=== PATIENT | female | born 1965 | race Caucasian/White ===

== ENCOUNTER 2019-11-11 18:18 | Inpatient (IN) | payer MEDICAID ==
[~2019-11-11] VITALS: Ht 172.7 cm; Wt 62.0 kg
[2019-11-11] MEDS ORDERED: TRAZ150T62 PO (18:42)
[2019-11-11] MEDS ORDERED: AMLO-150 PO (18:42)
[2019-11-11] MEDS ORDERED: PREG300C PO (18:42)
[2019-11-11] MEDS ORDERED: OXYC10TA6 PO (18:42)
[2019-11-11] MEDS ORDERED: PANT40TA3 PO (18:42)
[2019-11-11] MEDS ORDERED: DIPHENHYDRAMINE 50 MG/ML, 1ML ONE (18:49)
[2019-11-11] MEDS ORDERED: METOCLOPRAMIDE 5 MG/ML, 2ML ONE (18:50)
[2019-11-11] MEDS ORDERED: METOCLOPRAMIDE 5 MG/ML, 2ML IVPush ONE (19:00)
[2019-11-11] MEDS ORDERED: DIPHENHYDRAMINE 50 MG/ML, 1ML IVPush ONE (19:00)
[2019-11-11] MEDS ORDERED: PREGABALIN 150 MG CAPSULE PO ONE (19:00)
[2019-11-11 19:09] LABS: D-DIMER 0.78 ug/mlFEU (0.00-0.52); INTERNATIONAL NORMALIZED RATIO 1.1 (0.93-1.1); PROTHROMBIN TIME 11.3 Seconds (9.6-11.5)
[2019-11-11 19:11] LABS: TROPONIN I < 0.015 ng/mL (0.000-0.045)
--- NOTE | 2019-11-11 19:36 | NUR ---
PATIENT HAS IMPROVED WITH MEDICATIONS, TOLERATING INTERVENTIONS WELL. NO NOTED NEEDS AT THIS TIME. WILL CONTINUE TO MONITOR. PATIENT'S VITAL SIGNS ARE WITHIN PATIENT'S NORMAL RANGE.
--- NOTE | 2019-11-11 19:57 | NUR ---
PATIENT VERBALIZED APPROVAL TO SHARE MEDICAL RELATED INFORMATION WITH JANEY MOCK.
[2019-11-11] MEDS ORDERED: ENALAPRILAT 1.25 MG/ML, 2ML IV ONE (21:00)
[2019-11-11] MEDS ORDERED: ENALAPRILAT 1.25 MG/ML, 1ML ONE (21:12)
[2019-11-11] MEDS ORDERED: ENALAPRILAT 1.25 MG/ML, 1ML IV ONE (21:30)
[2019-11-11] MEDS ORDERED: ACETAMINOPHEN 325 MG TABLET PO PRN (22:00)
[2019-11-11] MEDS ORDERED: NITROGLYCERIN 0.4 MG BOTTLE (25 TABS) SL PRN (22:00)
[2019-11-11] MEDS ORDERED: BISACODYL 10 MG SUPP PR PRN (22:00)
[2019-11-11] MEDS ORDERED: hydrALAzine 20 MG/ML, 1ML IVPush PRN (22:00)
[2019-11-11] MEDS ORDERED: HEPARIN 5,000 UNITS/ML, 1ML SQ SCH (22:00)
[2019-11-11 22:11] LABS: ALBUMIN 4.2 g/dL (3.4-5.0); ANION GAP 6 mmol/L (5-15); CALCIUM 10.6 mg/dL (8.5-10.1); CHLORIDE 103 mmol/L (98-107)
[2019-11-11 22:16] LABS: ALANINE AMINOTRANSFERASE 59 U/L (12-78); ALKALINE PHOSPHATASE 155 U/L (45-117); BILIRUBIN,TOTAL 0.7 mg/dL (0.2-1.0); CREATININE 1.16 mg/dL (0.55-1.02); TOTAL PROTEIN 8.1 g/dL (6.4-8.2)
[2019-11-11] MEDS ORDERED: ENALAPRILAT 1.25 MG/ML, 2ML IV PRN (22:30)
[2019-11-11] MEDS ORDERED: INSTRUCTION SEE COMMENTS XX PRN (22:30)
--- NOTE | 2019-11-11 22:44 | NUR ---
PATIENT NEEDED TO USE THE RESTROOM, VOMITTED ON ONE OCCASION TWICE. PATIENT HAS DARK EMESIS WITH SOME RED COLOR. PATIENT STATED THAT SHE USE TO HAVE A PEPTIC ULCER, RESULTED IN GI CONSULT AND EGD. MADE RAFA SYKES AWARE OF PATIENT'S CHANGE IN STATUS. ADMITTING RN FRANCO, SHARLENE PLUMMER. PATIENT UPDATED ON PLAN OF CARE. RAFA SYKES VERBALIZED UNDERSTANDING, WILL ORDER PROTONIX IVP.
--- NOTE | 2019-11-11 22:46 | NUR ---
SUBQ HEPARIN WILL BE DISCONTINUED PER RAFA SYKES.
[2019-11-11 22:59] VITALS: BP 132/88
[2019-11-11 23:08] LABS: BASOPHILS # (AUTO) 0.01 x10^3/uL (0-0.1); BASOPHILS % (AUTO) 0 % (0-1); EOSINOPHILS % (AUTO) 0 % (1-7); LYMPHOCYTES # (AUTO) 3.14 x10^3/uL (1-3.4); LYMPHOCYTES % (AUTO) 22 % (22-44); MD SCAN; MEAN CORPUSCULAR HEMOGLOBIN 23.3 pg (27.0-34.8); MEAN CORPUSCULAR HGB CONC 31.5 g/dL (32.4-35.8); MEAN PLATELET VOLUME 13.7 fL (7.4-10.4); MONOCYTES # (AUTO) 1.07 x10^3/uL (0.2-0.8); MONOCYTES % (AUTO) 7 % (2-9); NEUTROPHILS # (AUTO) 10.21 x10^3/uL (1.8-6.8); NEUTROPHILS % (AUTO) 71 % (42-75); PLATELET COUNT 207 x10^3/uL (130-400); RED CELL DISTRIBUTION WIDTH 20.9 % (9.6-15.2)
[2019-11-11] MEDS ORDERED: OMNIPAQUE 350 MG/ML, 100ML BOTTLE ONE (23:38)
[2019-11-11] MEDS: morphine SULFATE 10 MG/ML, 1ML IVPush PRN (23:48)
[2019-11-11] MEDS: PANTOPRAZOLE 40 MG IV IVPush SCH (23:49)
[2019-11-11] MEDS: SODIUM CHLORIDE FLUSH 10ML SYR IVF SCH (23:49)
[2019-11-12 00:56] LABS: TROPONIN I < 0.015 ng/mL (0.000-0.045)
[2019-11-12 02:39] VITALS: BP 122/84
[2019-11-12] MEDS ORDERED: ENALAPRILAT 1.25 MG/ML, 2ML IV PRN (04:30)
[2019-11-12] MEDS: morphine SULFATE 10 MG/ML, 1ML IVPush PRN ×2 (04:34→21:15)
[2019-11-12 04:41] LABS: MEAN CORPUSCULAR HEMOGLOBIN 23.2 pg (27.0-34.8); MEAN CORPUSCULAR HGB CONC 31.4 g/dL (32.4-35.8); MEAN PLATELET VOLUME 14.4 fL (7.4-10.4); PLATELET COUNT 160 x10^3/uL (130-400); RED BLOOD COUNT 5.83 x10^6/uL (3.82-5.3); RED CELL DISTRIBUTION WIDTH 20.8 % (9.6-15.2)
[2019-11-12 05:59] LABS: BASOPHILS # (AUTO) 0.04 x10^3/uL (0-0.1); BASOPHILS % (AUTO) 0 % (0-1); EOSINOPHILS # (AUTO) 0.04 x10^3/uL (0-0.4); EOSINOPHILS % (AUTO) 0 % (1-7); LYMPHOCYTES # (AUTO) 2.26 x10^3/uL (1-3.4); LYMPHOCYTES % (AUTO) 17 % (22-44); MD SCAN; MONOCYTES # (AUTO) 1.02 x10^3/uL (0.2-0.8); MONOCYTES % (AUTO) 8 % (2-9); NEUTROPHILS # (AUTO) 10.34 x10^3/uL (1.8-6.8); NEUTROPHILS % (AUTO) 76 % (42-75)
[2019-11-12] MEDS ORDERED: ASPIRIN 81 MG TABLET EC PO SCH (06:00)
[2019-11-12 06:45] LABS: ANION GAP 6 mmol/L (5-15); CALCIUM 9.3 mg/dL (8.5-10.1); CHLORIDE 103 mmol/L (98-107); CHOLESTEROL, TOTAL 147 mg/dL (140-239); CREATININE 1.18 mg/dL (0.55-1.02); TRIGLYCERIDES 143 mg/dL (50-200); VLDL CHOLESTEROL 29 mg/dL (0-25)
[2019-11-12 06:48] LABS: CHOL/HDL RATIO 4.1; HDL CHOL % 24 % (28-40); HDL CHOLESTEROL (DIRECT) 36 mg/dL (40-60); LDL CHOLESTEROL,CALCULATED 82 mg/dL (54-169); LDL/HDL RATIO 2.3 (0.5-3.0); TROPONIN I < 0.015 ng/mL (0.000-0.045)
[2019-11-12 07:00] VITALS: BP 122/84
[2019-11-12] MEDS: PANTOPRAZOLE 40MG TABLET PO SCH (07:30)
[2019-11-12] MEDS ORDERED: LORazepam 2 MG/ML, 1ML ONE (08:15)
[2019-11-12] MEDS ORDERED: LORazepam 2 MG/ML, 1ML IVPush ONE (08:30)
[2019-11-12] MEDS: SENNA/DOCUSATE TABLET PO SCH (09:00)
[2019-11-12] MEDS: SODIUM CHLORIDE FLUSH 10ML SYR IVF SCH ×2 (09:00→20:42)
[2019-11-12] MEDS ORDERED: REGADENOSON 0.4 MG/5 ML SYRINGE ONE (09:19)
[2019-11-12] MEDS: TRAZODONE 100MG TABLET PO SCH (11:10)
[2019-11-12] MEDS: ONDANSETRON ODT 4 MG PO PRN (11:11)
[2019-11-12] MEDS: PREGABALIN 150 MG CAPSULE PO SCH ×2 (11:11→20:41)
[2019-11-12] MEDS: AMLODIPINE 10 MG TAB PO SCH (11:11)
[2019-11-12] MEDS: PANTOPRAZOLE 40 MG IV IVPush SCH ×2 (11:12→23:45)
[2019-11-12] MEDS: METOCLOPRAMIDE 5 MG/ML, 2ML IVPush SCH ×2 (13:23→20:41)
[2019-11-12 14:02] LABS: HCT (SEDRATE) 40.7 % (34.6-47.8)
[2019-11-12] MEDS: D5 IV SCH ×2 (14:04→23:45)
[2019-11-12] MEDS: POTASSIUM CHLORIDE IV SCH ×2 (14:04→23:45)
[2019-11-12] MEDS: NACL IV SCH ×2 (14:04→23:45)
[2019-11-12 14:09] LABS: C-REACTIVE PROTEIN, QUANT 0.23 mg/dL (0.02-0.49)
[2019-11-12 14:30] VITALS: BP 135/76
[2019-11-12 19:11] VITALS: BP 139/87
[2019-11-13] VITALS (13 sets, daily range): BP systolic 120–164; BP diastolic 62–95
[2019-11-13] MEDS: METOCLOPRAMIDE 5 MG/ML, 2ML IVPush SCH ×4 (01:27→21:01)
[2019-11-13] MEDS: morphine SULFATE 10 MG/ML, 1ML IVPush PRN ×2 (01:55→09:11)
[2019-11-13] MEDS ORDERED: LORazepam 1MG TABLET PO ONE (04:30)
[2019-11-13] MEDS: SENNA/DOCUSATE TABLET PO SCH (08:54)
[2019-11-13] MEDS: TRAZODONE 100MG TABLET PO SCH (08:54)
[2019-11-13] MEDS: AMLODIPINE 10 MG TAB PO SCH (08:54)
[2019-11-13] MEDS: PREGABALIN 150 MG CAPSULE PO SCH ×2 (08:55→21:00)
[2019-11-13] MEDS: SODIUM CHLORIDE FLUSH 10ML SYR IVF SCH ×2 (08:55→21:00)
[2019-11-13] MEDS: PANTOPRAZOLE 40MG TABLET PO SCH (09:01)
[2019-11-13] MEDS: POTASSIUM CHLORIDE IV SCH (10:09)
[2019-11-13] MEDS: NACL IV SCH (10:09)
[2019-11-13] MEDS: D5 IV SCH (10:09)
[2019-11-13 11:39] LABS: BASOPHILS # (AUTO) 0.02 x10^3/uL (0-0.1); BASOPHILS % (AUTO) 0 % (0-1); EOSINOPHILS # (AUTO) 0.06 x10^3/uL (0-0.4); EOSINOPHILS % (AUTO) 1 % (1-7); LYMPHOCYTES # (AUTO) 1.11 x10^3/uL (1-3.4); LYMPHOCYTES % (AUTO) 21 % (22-44); MD SCAN; MEAN CORPUSCULAR HEMOGLOBIN 23.4 pg (27.0-34.8); MEAN CORPUSCULAR HGB CONC 31.1 g/dL (32.4-35.8); MEAN PLATELET VOLUME 13.3 fL (7.4-10.4); MONOCYTES # (AUTO) 0.33 x10^3/uL (0.2-0.8); MONOCYTES % (AUTO) 6 % (2-9); NEUTROPHILS # (AUTO) 3.91 x10^3/uL (1.8-6.8); NEUTROPHILS % (AUTO) 72 % (42-75); PLATELET COUNT 104 x10^3/uL (130-400); RED BLOOD COUNT 4.91 x10^6/uL (3.82-5.3); RED CELL DISTRIBUTION WIDTH 20.9 % (9.6-15.2)
[2019-11-13] MEDS: SODIUM CHLORIDE 0.9% 1,000 ML IV SCH (11:42)
[2019-11-13] MEDS ORDERED: OXYcodone IR 5MG TABLET PO PRN (12:30)
[2019-11-13] MEDS: ONDANSETRON ODT 4 MG PO PRN (14:33)
--- NOTE | 2019-11-13 14:42 | NUR ---
ERICK DECKER - Fall Risk Medications present (AMLODIPINE, CLONAZEPAM, ENALAPRILAT, TRAZODONE) and NOT receiving anticoagulants. Signed: 11/13/19 at 1443 by Ashly MONACO
[2019-11-13] MEDS: LACTOBACILLUS CHEW TABLET PO SCH ×4 (16:06→21:00)
[2019-11-13] MEDS: PROCHLORPERAZINE 5 MG/ML, 2ML IVPush PRN (17:27)
[2019-11-13] MEDS: SUCRALFATE 1 GM/10 ML UDC PO SCH (21:00)
[2019-11-14] VITALS: BP 151/85
[2019-11-14] MEDS: OXYcodone IR 5MG TABLET PO PRN ×3 (00:13→18:02)
[2019-11-14] MEDS: ACETAMINOPHEN 325 MG TABLET PO PRN ×2 (02:01→07:44)
[2019-11-14] MEDS: METOCLOPRAMIDE 5 MG/ML, 2ML IVPush SCH ×4 (02:01→21:23)
[2019-11-14 04:59] LABS: ANION GAP 5 mmol/L (5-15); CALCIUM 8.1 mg/dL (8.5-10.1); CHLORIDE 108 mmol/L (98-107); CREATININE 0.71 mg/dL (0.55-1.02)
[2019-11-14 05:04] LABS: BASOPHILS % (AUTO) 1 % (0-1); EOSINOPHILS % (AUTO) 2 % (1-7); LYMPHOCYTES % (AUTO) 28 % (22-44); MEAN CORPUSCULAR HEMOGLOBIN 23.1 pg (27.0-34.8); MEAN PLATELET VOLUME 10.4 fL (7.4-10.4); MONOCYTES % (AUTO) 6 % (2-9); NEUTROPHILS % (AUTO) 63 % (42-75); PLATELET COUNT 82 x10^3/uL (130-400); RED BLOOD COUNT 4.75 x10^6/uL (3.82-5.3); RED CELL DISTRIBUTION WIDTH 20.6 % (9.6-15.2)
[2019-11-14 05:37] LABS: MD SCAN
[2019-11-14] MEDS: SODIUM CHLORIDE 0.9% 1,000 ML IV SCH (06:19)
[2019-11-14 07:25] VITALS: BP 157/85
[2019-11-14] MEDS: SENNA/DOCUSATE TABLET PO SCH (07:43)
[2019-11-14] MEDS: LACTOBACILLUS CHEW TABLET PO SCH ×4 (07:43→21:22)
[2019-11-14] MEDS: PREGABALIN 150 MG CAPSULE PO SCH ×2 (07:43→21:22)
[2019-11-14] MEDS: PANTOPRAZOLE 40MG TABLET PO SCH (07:44)
[2019-11-14] MEDS: SODIUM CHLORIDE FLUSH 10ML SYR IVF SCH ×2 (07:44→21:21)
[2019-11-14] MEDS: SUCRALFATE 1 GM/10 ML UDC PO SCH ×2 (07:44→21:22)
[2019-11-14] MEDS: AMLODIPINE 10 MG TAB PO SCH (07:44)
[2019-11-14] MEDS: NS + 40MEQ KCL 1,000 ML IV SCH (10:29)
[2019-11-14] MEDS ORDERED: OMNIPAQUE 350 MG/ML, 100ML BOTTLE ONE (10:31)
[2019-11-14 13:20] VITALS: BP 169/107
[2019-11-14] MEDS: PROCHLORPERAZINE 5 MG/ML, 2ML IVPush PRN ×2 (13:31→18:02)
[2019-11-14 14:40] VITALS: BP 159/96
[2019-11-14 18:45] VITALS: BP 156/96
[2019-11-14] MEDS: TRAZODONE 100MG TABLET PO SCH (21:22)
[2019-11-14] MEDS: LISINOPRIL 5 MG TABLET PO SCH (21:23)
[2019-11-15 01:12] VITALS: BP 121/81
[2019-11-15] MEDS: OXYcodone IR 5MG TABLET PO PRN ×3 (02:19→22:53)
[2019-11-15] MEDS: PROCHLORPERAZINE 5 MG/ML, 2ML IVPush PRN ×2 (02:20→19:57)
[2019-11-15] MEDS: NS + 40MEQ KCL 1,000 ML IV SCH ×2 (02:53→22:53)
[2019-11-15] MEDS: METOCLOPRAMIDE 5 MG/ML, 2ML IVPush SCH ×5 (02:53→22:53)
[2019-11-15 05:09] LABS: BASOPHILS % (AUTO) 1 % (0-1); EOSINOPHILS % (AUTO) 2 % (1-7); LYMPHOCYTES % (AUTO) 36 % (22-44); MEAN CORPUSCULAR HEMOGLOBIN 22.8 pg (27.0-34.8); MEAN CORPUSCULAR HGB CONC 30.8 g/dL (32.4-35.8); MEAN PLATELET VOLUME 10.3 fL (7.4-10.4); MONOCYTES % (AUTO) 6 % (2-9); NEUTROPHILS % (AUTO) 55 % (42-75); PLATELET COUNT 88 x10^3/uL (130-400); RED BLOOD COUNT 5.08 x10^6/uL (3.82-5.3); RED CELL DISTRIBUTION WIDTH 20.5 % (9.6-15.2)
[2019-11-15 05:18] LABS: ANION GAP 3 mmol/L (5-15); CALCIUM 8.4 mg/dL (8.5-10.1); CHLORIDE 113 mmol/L (98-107); CREATININE 0.64 mg/dL (0.55-1.02)
[2019-11-15 06:21] LABS: MD SCAN
[2019-11-15 06:54] VITALS: BP 113/70
[2019-11-15] MEDS: SODIUM CHLORIDE FLUSH 10ML SYR IVF SCH ×2 (08:11→21:00)
[2019-11-15] MEDS: SUCRALFATE 1 GM/10 ML UDC PO SCH ×2 (08:11→21:14)
[2019-11-15] MEDS: LACTOBACILLUS CHEW TABLET PO SCH ×3 (08:11→19:58)
[2019-11-15] MEDS: PANTOPRAZOLE 40MG TABLET PO SCH (08:11)
[2019-11-15] MEDS: AMLODIPINE 10 MG TAB PO SCH (08:12)
[2019-11-15] MEDS: PREGABALIN 150 MG CAPSULE PO SCH ×2 (08:12→21:10)
[2019-11-15] MEDS: SENNA/DOCUSATE TABLET PO SCH (08:13)
[2019-11-15] MEDS: KETOROLAC 30 MG/1 ML IVPush PRN ×2 (10:43→20:00)
[2019-11-15] MEDS ORDERED: CHLORHEXIDINE 15 ML UDC ONE (13:16)
[2019-11-15] MEDS ORDERED: CHLORHEXIDINE 15 ML UDC MM ONE (13:30)
[2019-11-15] MEDS ORDERED: PROPOFOL 50 ML ONE (13:52)
[2019-11-15] MEDS ORDERED: ACETAMINOPHEN 325 MG TABLET PO PRN (14:00)
[2019-11-15 15:27] VITALS: BP 157/92
[2019-11-15 18:58] VITALS: BP 121/83
[2019-11-15] MEDS: TRAZODONE 100MG TABLET PO SCH (21:10)
[2019-11-15] MEDS: LISINOPRIL 5 MG TABLET PO SCH (21:10)
[2019-11-16] VITALS: BP 126/81
[2019-11-16] MEDS: KETOROLAC 30 MG/1 ML IVPush PRN ×3 (03:00→17:38)
[2019-11-16 04:00] VITALS: BP 120/75
[2019-11-16 05:00] LABS: ANION GAP 6 mmol/L (5-15); CALCIUM 8.5 mg/dL (8.5-10.1); CHLORIDE 108 mmol/L (98-107); CREATININE 0.67 mg/dL (0.55-1.02)
[2019-11-16] MEDS: OXYcodone IR 5MG TABLET PO PRN ×2 (05:33→12:42)
[2019-11-16] MEDS: METOCLOPRAMIDE 5 MG/ML, 2ML IVPush SCH ×3 (06:08→20:35)
[2019-11-16 07:39] VITALS: BP 129/92
[2019-11-16] MEDS: PANTOPRAZOLE 40MG TABLET PO SCH (08:41)
[2019-11-16] MEDS: POLYETHYLENE GLYCOL 17 GM PACKET PO PRN (08:41)
[2019-11-16] MEDS: SODIUM CHLORIDE 0.9% 1,000 ML IV SCH (08:41)
[2019-11-16] MEDS: AMLODIPINE 10 MG TAB PO SCH (08:41)
[2019-11-16] MEDS: LACTOBACILLUS CHEW TABLET PO SCH ×3 (08:41→22:06)
[2019-11-16] MEDS: PREGABALIN 150 MG CAPSULE PO SCH ×2 (08:41→22:07)
[2019-11-16] MEDS: SUCRALFATE 1 GM/10 ML UDC PO SCH ×2 (08:41→22:06)
[2019-11-16] MEDS: SODIUM CHLORIDE FLUSH 10ML SYR IVF SCH ×2 (08:42→21:00)
[2019-11-16] MEDS: SENNA/DOCUSATE TABLET PO SCH (08:42)
[2019-11-16 13:58] VITALS: BP 126/86
[2019-11-16] MEDS: PROCHLORPERAZINE 5 MG/ML, 2ML IVPush PRN (17:39)
[2019-11-16 19:59] VITALS: BP 136/92
[2019-11-16 22:04] VITALS: BP 156/101
[2019-11-16] MEDS: TRAZODONE 100MG TABLET PO SCH (22:06)
[2019-11-16] MEDS: LISINOPRIL 5 MG TABLET PO SCH (22:07)
[2019-11-17] MEDS: OXYcodone IR 5MG TABLET PO PRN ×4 (00:13→23:47)
[2019-11-17 00:28] VITALS: BP 146/94
[2019-11-17 00:51] VITALS: BP 122/85
[2019-11-17] MEDS: METOCLOPRAMIDE 5 MG/ML, 2ML IVPush SCH ×4 (01:44→20:34)
[2019-11-17] MEDS: SODIUM CHLORIDE 0.9% 1,000 ML IV SCH ×2 (01:45→22:30)
[2019-11-17] MEDS: KETOROLAC 30 MG/1 ML IVPush PRN ×2 (01:52→12:58)
--- NOTE | 2019-11-17 02:17 | NUR ---
ERICK DECKER - Fall Risk Medications present and NOT receiving anticoagulants.
[2019-11-17 07:32] VITALS: BP 113/77
[2019-11-17] MEDS: SENNA/DOCUSATE TABLET PO SCH (08:21)
[2019-11-17] MEDS: LACTOBACILLUS CHEW TABLET PO SCH ×3 (08:22→22:30)
[2019-11-17] MEDS: SODIUM CHLORIDE FLUSH 10ML SYR IVF SCH ×2 (08:22→22:32)
[2019-11-17] MEDS: PANTOPRAZOLE 40MG TABLET PO SCH (08:22)
[2019-11-17] MEDS: SUCRALFATE 1 GM/10 ML UDC PO SCH ×2 (09:57→22:31)
[2019-11-17] MEDS: PREGABALIN 150 MG CAPSULE PO SCH ×2 (09:58→22:31)
[2019-11-17] MEDS: AMLODIPINE 10 MG TAB PO SCH (09:58)
[2019-11-17] MEDS: METHYLNALTREXONE 12 MG/0.6 ML SYR SQ SCH (10:38)
[2019-11-17 13:11] VITALS: BP 114/75
[2019-11-17 19:02] VITALS: BP 147/90
[2019-11-17 22:27] VITALS: BP 130/87
[2019-11-17] MEDS: LISINOPRIL 5 MG TABLET PO SCH (22:31)
[2019-11-17] MEDS: TRAZODONE 50MG TABLET PO SCH (22:31)
[2019-11-18] MEDS: METOCLOPRAMIDE 5 MG/ML, 2ML IVPush SCH ×4 (03:30→20:28)
[2019-11-18 05:54] VITALS: BP 130/84
[2019-11-18] MEDS: PANTOPRAZOLE 40MG TABLET PO SCH (06:35)
[2019-11-18] MEDS: POLYETHYLENE GLYCOL 17 GM PACKET PO PRN (06:36)
[2019-11-18] MEDS: OXYcodone IR 5MG TABLET PO PRN ×3 (06:36→23:14)
[2019-11-18] MEDS: SODIUM CHLORIDE FLUSH 10ML SYR IVF SCH ×2 (08:14→20:28)
[2019-11-18] MEDS: SUCRALFATE 1 GM/10 ML UDC PO SCH ×2 (08:16→20:28)
[2019-11-18 08:46] VITALS: BP 105/73
[2019-11-18] MEDS: AMLODIPINE 10 MG TAB PO SCH (09:22)
[2019-11-18] MEDS: SENNA/DOCUSATE TABLET PO SCH (09:22)
[2019-11-18] MEDS: PREGABALIN 150 MG CAPSULE PO SCH ×2 (09:22→20:28)
[2019-11-18] MEDS: LACTOBACILLUS CHEW TABLET PO SCH ×3 (09:25→20:28)
[2019-11-18] MEDS ORDERED: BISA10SU4 PR (10:16)
[2019-11-18] MEDS ORDERED: ACET325T26 PO (10:16)
[2019-11-18] MEDS ORDERED: POLY17PO5 PO (10:16)
[2019-11-18] MEDS ORDERED: ACID1TAB7 PO (10:16)
[2019-11-18] MEDS ORDERED: LISI5TAB7 PO (10:16)
[2019-11-18] MEDS ORDERED: SUCR1ORA5 PO (10:16)
[2019-11-18] MEDS ORDERED: Senna/Docusate PO (10:16)
[2019-11-18] MEDS ORDERED: MAGNESIUM CITRATE 300ML ORAL SOL PO ONE (10:30)
[2019-11-18] MEDS: KETOROLAC 30 MG/1 ML IVPush PRN ×2 (11:33→19:28)
[2019-11-18 12:09] VITALS: BP 132/89
[2019-11-18] MEDS: SODIUM CHLORIDE 0.9% 1,000 ML IV SCH ×2 (12:40→22:51)
[2019-11-18 18:54] VITALS: BP 141/91
[2019-11-18] MEDS: LISINOPRIL 5 MG TABLET PO SCH (20:28)
[2019-11-18] MEDS: TRAZODONE 50MG TABLET PO SCH (20:28)
[2019-11-19 00:40] VITALS: BP 132/82
[2019-11-19] MEDS: METOCLOPRAMIDE 5 MG/ML, 2ML IVPush SCH ×2 (02:32→08:02)
[2019-11-19] MEDS: KETOROLAC 30 MG/1 ML IVPush PRN (02:40)
[2019-11-19] MEDS: PANTOPRAZOLE 40MG TABLET PO SCH (07:57)
[2019-11-19] MEDS: METHYLNALTREXONE 12 MG/0.6 ML SYR SQ SCH ×2 (08:00→09:42)
[2019-11-19] MEDS: SENNA/DOCUSATE TABLET PO SCH (08:03)
[2019-11-19] MEDS: AMLODIPINE 10 MG TAB PO SCH (08:03)
[2019-11-19] MEDS: LACTOBACILLUS CHEW TABLET PO SCH (08:03)
[2019-11-19] MEDS: SODIUM CHLORIDE FLUSH 10ML SYR IVF SCH (08:04)
[2019-11-19] MEDS: OXYcodone IR 5MG TABLET PO PRN (08:04)
[2019-11-19] MEDS: SUCRALFATE 1 GM/10 ML UDC PO SCH (08:04)
[2019-11-19] MEDS: PREGABALIN 150 MG CAPSULE PO SCH (09:41)
[2019-11-19 10:58] VITALS: BP 119/87
== END 2019-11-19 13:07 | disposition home or self-care (01) | DRG 190 ==
LOC: ED 21:33 → EDIP 21:48 → 5SO 22:46 → 4NW 11-14 14:22 → 3N 11-16 06:00
PROVIDERS: ADMIT Family Medicine; ATTEND Internal Medicine
PROC: 0DB58ZX Excision of Esophagus, Via Natural or Artificial Opening Endoscopic, Diagnostic (ICD-10-PCS; principal; 2019-11-15 16:00)
DX: I21.3 ST elevation (STEMI) myocardial infarction of unspecified site (principal); I25.10 Atherosclerotic heart disease of native coronary artery without angina pectoris; I11.0 Hypertensive heart disease with heart failure; G89.29 Other chronic pain; M79.7 Fibromyalgia; G25.81 Restless legs syndrome; I16.0 Hypertensive urgency; F41.9 Anxiety disorder, unspecified; D72.829 Elevated white blood cell count, unspecified; E87.6 Hypokalemia; R40.0 Somnolence; T40.605A Adverse effect of unspecified narcotics, initial encounter; I25.5 Ischemic cardiomyopathy; D64.9 Anemia, unspecified; K20.91 Esophagitis, unspecified with bleeding; K29.71 Gastritis, unspecified, with bleeding; K59.00 Constipation, unspecified; Z90.49 Acquired absence of other specified parts of digestive tract; Z90.710 Acquired absence of both cervix and uterus; Z79.899 Other long term (current) drug therapy; Z79.891 Long term (current) use of opiate analgesic; Z79.01 Long term (current) use of anticoagulants; Z88.1 Allergy status to other antibiotic agents; Z88.0 Allergy status to penicillin; Z91.013 Allergy to seafood; Z88.2 Allergy status to sulfonamides; Z88.8 Allergy status to other drugs, medicaments and biological substances; Z72.89 Other problems related to lifestyle; Y92.89 Other specified places as the place of occurrence of the external cause; Z91.09 Other allergy status, other than to drugs and biological substances; Z20.828 Contact with and (suspected) exposure to other viral communicable diseases
CPT/HCPCS: 36415; 70450; 71275; 74177; 78452; 80048; 80053; 80061; 83690; 83735; 83880; 84484; 85025; 85379; 85610; 85651; 85730; 86140; 87635; 88305; 93005; 93017; G0378; J1885; J2704; J2785; J3480; J7042; Q0162; Q9967; A9502; C9113; C9898; J0780; J1200; J2060; J2270; J2765; J7030